=== PATIENT | male | born 1980 | race Two or more races ===

== ENCOUNTER 2024-11-05 11:48 | Inpatient (IN) | payer OTHER ==
[2024-11-05 12:40] VITALS: BMI 23.5
[2024-11-05] MEDS ORDERED: chlordiazePOXIDE HCL 25 MG CAPSULE PO PRN (13:27)
[2024-11-05] MEDS ORDERED: MAGNESIUM HYDROX 2400MG/30ML ORAL SUSPENSION 30 ML CUP PO PRN (13:33)
[2024-11-05] MEDS ORDERED: IBUPROFEN 400 MG TABLET (FP) PO PRN (13:33)
[2024-11-05] MEDS ORDERED: BENZONATATE 200 MG CAPSULE PO PRN (13:33)
[2024-11-05] MEDS ORDERED: guaiFENesin 600 MG TABLET.ER (FP) PO PRN (13:33)
[2024-11-05] MEDS ORDERED: DICYCLOMINE HCL 10 MG CAPSULE PO PRN (13:33)
[2024-11-05] MEDS ORDERED: ACETAMINOPHEN 325 MG TABLET (FP) PO PRN (13:33)
[2024-11-05] MEDS ORDERED: BENZOCAINE/MENTHOL (CHLORASEPTIC ) LOZENGE MM PRN (13:33)
[2024-11-05] MEDS ORDERED: MAG HYDROX/AL HYDROX/SIMETH 30 ML UNIT-DOSE CUP PO PRN (13:33)
[2024-11-05] MEDS ORDERED: NICOTINE POLACRILEX 2 MG GUM BUC PRN (13:33)
[2024-11-05] MEDS ORDERED: ONDANSETRON *ODT* 4 MG TABLET SL PRN (13:33)
[2024-11-05] MEDS ORDERED: NICOTINE POLACRILEX 2 MG LOZENGE BC PRN (13:33)
[2024-11-05] MEDS ORDERED: NALOXONE (NARCAN) HCL 4 MG/0.1 ML SPRAY NS PRN (13:33)
[2024-11-05] MEDS ORDERED: POLYETHYLENE GLYCOL (HEALTHYLAX) 3350 17 GM PACKET PO PRN (13:33)
[2024-11-05] MEDS ORDERED: levETIRAcetam 500 MG TABLET (FP) PO ONE (13:53)
[2024-11-05] MEDS ORDERED: chlordiazePOXIDE HCL 25 MG CAPSULE ONE (13:53)
[2024-11-05] MEDS: levETIRAcetam 500 MG TABLET (FP) PO SCH (13:55)
[2024-11-05] MEDS: chlordiazePOXIDE HCL 25 MG CAPSULE PO ONE (13:55)
[2024-11-05] MEDS: chlordiazePOXIDE HCL 25 MG CAPSULE PO SCH (17:29)
[2024-11-05] MEDS: THIAMINE 100 MG TABLET PO SCH (22:24)
[2024-11-05] MEDS: MELATONIN 5 MG TABLETS PO SCH (22:24)
[2024-11-06] MEDS: LOPERAMIDE HCL 2 MG CAPSULE PO PRN (08:35)
[2024-11-06 09:24] LABS: HEMATOCRIT 36.9 % (40.1-51.0); HEMOGLOBIN 12.4 g/dL (13.7-17.5); MCHC 33.6 g/dl (32.3-36.5); MEAN CELL VOLUME 95.1 fl (79.0-92.2); MEAN PLT VOLUME 9.8 fl (9.4-12.4); PLATELET COUNT 174 x10^3/uL (163-337); RDW 12.8 % (12.1-15.9)
[2024-11-06 09:27] LABS: CHLORIDE 100 mmol/L (98-107); POTASSIUM 4.3 mmol/L (3.5-5.1); SODIUM 142 mmol/L (136-145)
[2024-11-06 09:31] LABS: CALCIUM 9.1 mg/dL (8.5-10.1)
[2024-11-06 09:32] LABS: ANION GAP 15 mmol/L (4-13); BLOOD UREA NITROGEN 6.8 mg/dL (7-18); CO2 27 mmol/L (21-32); GLUCOSE,RANDOM 89 mg/dL (74-106)
[2024-11-06 09:35] LABS: CREATININE 0.8 mg/dL (0.55-1.3); SGOT/AST 82 U/L (15-37); SGPT/ALT 65 U/L (13-61)
[2024-11-06 09:36] LABS: BILIRUBIN,TOTAL 1.1 mg/dL (0.2-1); TOT PROT 5.3 g/dl (6.4-8.2)
[2024-11-06 09:37] LABS: ALK PHOS 70 U/L (45-117)
[2024-11-06] MEDS: PRENATAL VITAMINS W/ FOLIC ACID TABLET (FP) PO SCH (10:38)
[2024-11-06] MEDS: amLODIPine BESYLATE 5 MG TABLET (FP) PO SCH (13:39)
[2024-11-06] MEDS: BISMUTH SUBSALICYLATE 524 MG/30 ML PO PRN (17:15)
[2024-11-06] MEDS: METHOCARBAMOL 500 MG TABLET PO PRN (22:10)
[2024-11-06] MEDS: SUVOREXANT 10 MG TABLET PO PRN (22:11)
[2024-11-06] MEDS: IBUPROFEN 600 MG TABLET (FP) PO PRN (22:11)
[2024-11-07] MEDS: chlordiazePOXIDE HCL 25 MG CAPSULE PO SCH (05:47)
[2024-11-07 11:50] LABS: POTASSIUM 3.7 mmol/L (3.5-5.1)
[2024-11-07 12:02] LABS: BLOOD UREA NITROGEN 5.9 mg/dL (7-18); CALCIUM 9.3 mg/dL (8.5-10.1)
[2024-11-07 12:05] LABS: BILIRUBIN,DIRECT 0.2 mg/dL (0.0-0.2); CREATININE 0.8 mg/dL (0.55-1.3)
[2024-11-07 12:06] LABS: BILIRUBIN,TOTAL 0.6 mg/dL (0.2-1)
[2024-11-07 12:07] LABS: TOT PROT 5.6 g/dl (6.4-8.2)
[2024-11-08] MEDS ORDERED: chlordiazePOXIDE HCL 10 MG CAPSULE PO PRN
[2024-11-08] MEDS: chlordiazePOXIDE HCL 10 MG CAPSULE PO SCH (05:46)
[2024-11-08] MEDS ORDERED: levETIRAcetam 250 MG TABLET PO ONE (22:02)
[2024-11-09] MEDS: chlordiazePOXIDE HCL 10 MG CAPSULE PO SCH (06:00)
[2024-11-09 06:44] VITALS: RESP 18
[2024-11-09 09:29] VITALS: BP 138/122; PULSE 88; TEMP 97
[2024-11-10] MEDS ORDERED: chlordiazePOXIDE HCL 10 MG CAPSULE PO ONE (05:00)
== END 2024-11-09 11:10 | disposition home or self-care (01) | DRG 775 ==
LOC: YASAS 11:48 → Y6N 13:52
PROVIDERS: ADMIT Neuromusculoskeletal Medicine & OMM; ATTEND Allergy & Immunology
PROC: HZ2ZZZZ Detoxification Services for Substance Abuse Treatment (ICD-10-PCS; principal; 2024-11-05)
DX: F10.230 Alcohol dependence with withdrawal, uncomplicated (principal); F12.20 Cannabis dependence, uncomplicated; F17.210 Nicotine dependence, cigarettes, uncomplicated; F19.280 Other psychoactive substance dependence with psychoactive substance-induced anxiety disorder; F19.282 Other psychoactive substance dependence with psychoactive substance-induced sleep disorder; G47.00 Insomnia, unspecified; I10 Essential (primary) hypertension; R74.8 Abnormal levels of other serum enzymes; Z62.810 Personal history of physical and sexual abuse in childhood; Z91.410 Personal history of adult physical and sexual abuse; Z63.8 Other specified problems related to primary support group; Z63.0 Problems in relationship with spouse or partner
CPT/HCPCS: 36415; 80048; 80053; 80076; 80305; 80307; 85027; 86780; 93005; 93010